=== PATIENT | male | born 1940 | race Hispanic/Latino ===

== ENCOUNTER 2017-02-11 12:04 | Emergency (ER) | payer MEDICARE, OTHER ==
[2017-02-11] MEDS ORDERED: fentaNYL CITRATE INJ 50 MCG/ML AMP IV ONE ×2 (12:10→13:04)
--- NOTE | 2017-02-11 12:10 | ED.PDOC ---
History of Present Illness - General Chief Complaint: Abdominal Pain Stated Complaint: abdominal pain Time Seen by Provider: 02/11/17 12:08 Source: EMS notes reviewed Exam Limitations: no limitations - History of Present Illness Initial Comments: Ze Reyes 76 y/o male brought by EMS with sudden onset of low back pain today radiating to his groin.EMS stated had just come home from [place]. Timing/Duration: 1-3 hours Severity: severe Improving Factors: nothing Worsening Factors: nothing Associated Symptoms: denies symptoms Allergies/Adverse Reactions: Allergies NO KNOWN ALLERGY Allergy (Verified 02/11/17 12:17) Review of Systems - Review of Systems Constitutional: States: no symptoms reported EENTM: States: no symptoms reported Respiratory: States: no symptoms reported Cardiology: States: no symptoms reported Gastrointestinal/Abdominal: States: see HPI Genitourinary: States: no symptoms reported Musculoskeletal: States: no symptoms reported Skin: States: no symptoms reported Neurological: States: no symptoms reported Past Medical History (General) - Patient Medical History Hx Seizures: No Hx Stroke: No Hx Cardiac Disorders: No Hx Congestive Heart Failure: No Hx Thyroid Disease: No Surgical History: other - low back surgery in [place] congenital defect lumbar spine - Social History Hx Physical Abuse: No Hx Emotional Abuse: No Hx Suspected Abuse: No - Activities of Daily Living Grooming Ability: Independent Eating (Feeding) Ability: Independent Toileting Ability: Independent Family Medical History - Family History Father Family History: No Known Physical Exam - Physical Exam General Appearance: Alert, Anxious, Other - in pain Eye Exam: bilateral normal Ears, Nose, Throat: hearing grossly normal, normal ENT inspection, normal pharynx Neck: full range of motion Respiratory: chest non-tender, lungs clear, normal breath sounds Cardiovascular/Chest: regular rate, rhythm, no murmur, tachycardia Gastrointestinal/Abdominal: soft, no organomegaly, tenderness - lower abdomen Rectal Exam: normal rectal tone Extremity: non-tender, no pedal edema Progress - Progress Progress: 02/11/17 13:19 Patient was hypotensive was given bolus and started on levophed.He was also restless so intubation was done given fentanyl and succinylcholine. 02/11/17 13:21 Abdominal ultrasound done showing abdominal aneurysm 9.4 cm 02/11/17 13:50 Laboratory Tests 02/11/17 02/11/17 02/11/17 12:13 12:45 12:45 WBC 15.0 H RBC 3.14 L Hgb 8.8 L Hct 27.5 L MCV 87.6 MCH 28.0 MCHC 31.8 L RDW 16.7 H Plt Count 197 MPV 8.3 Absolute Neuts (auto) 11.80 H Absolute Lymphs (auto) 2.20 Absolute Monos (auto) 0.80 Absolute Eos (auto) 0.10 Absolute Basos (auto) 0.10 Neutrophils % 78.5 H Lymphocytes % 15.0 L Monocytes % 5.3 Eosinophils % 0.8 L Basophils % 0.4 PT 14.5 H INR 1.290 PTT (SP) 36.0 Sodium 141 Potassium 3.9 Chloride 113 H Carbon Dioxide 21 Anion Gap 10.9 L BUN 24 H Creatinine 1.43 H BUN/Creatinine Ratio 16.8 Random Glucose 169 H Serum Osmolality 289.2 Calcium 8.3 L Total Bilirubin 0.6 AST 23 ALT 16 Alkaline Phosphatase 60 Troponin I Serum Total Protein 4.6 L Albumin 2.6 L Globulin 2.0 L Albumin/Globulin Ratio 1.3 Lipase 40 Patient ABO/Rh Antibody Screen Crossmatch 02/11/17 02/11/17 12:45 12:45 WBC RBC Hgb Hct MCV MCH MCHC RDW Plt Count MPV Absolute Neuts (auto) Absolute Lymphs (auto) Absolute Monos (auto) Absolute Eos (auto) Absolute Basos (auto) Neutrophils % Lymphocytes % Monocytes % Eosinophils % Basophils % PT INR PTT (SP) Sodium Potassium Chloride Carbon Dioxide Anion Gap BUN Creatinine BUN/Creatinine Ratio Random Glucose Serum Osmolality Calcium Total Bilirubin AST ALT Alkaline Phosphatase Troponin I < 0.02 Serum Total Protein Albumin Globulin Albumin/Globulin Ratio Lipase Patient ABO/Rh O POSITIVE Antibody Screen Negative Crossmatch See Detail - EKG/XRAY/CT EKG: Sinus, Tachy, no ST T wave changes Comments: heart rate-108 Departure - Departure Clinical Impression: Abdominal aortic aneurysm rupture Abdominal pain Qualifiers: Abdominal location: lower abdomen, unspecified Qualified Code(s): R10.30 - Lower abdominal pain, unspecified Time of Disposition: 13:51 Disposition: Transfer to Hospital Condition: Poor Departure Forms: Patient Portal Self Enrollment Referrals: Gallo Yu MD [Primary Care Provider] - 1-2 Weeks Transfer to Outside Facility - Transfer Information Accepting Facility: [facility] Reason for Transfer: required specialist not available
[2017-02-11] MEDS ORDERED: NOREPINEPHRINE BITARTRATE 4 MG/4 ML VIAL IVPB ONE (12:35)
[2017-02-11] MEDS ORDERED: DEXTROSE 5% 250ML 250 ML ONE (12:36)
--- NOTE | 2017-02-11 12:38 | RAD ---
EXAM DESCRIPTION: Chest,1 View CLINICAL HISTORY: pain COMPARISON: None available TECHNIQUE: AP portable chest FINDINGS: A poor respiratory effect is observed. The lungs are clear. The heart is within range of normal. IMPRESSION: Poor inspiratory effect otherwise unremarkable chest. Electronically signed by: Damon Trujillo MD 02/11/2017 12:37 PM CDT
[2017-02-11] MEDS ORDERED: SODIUM CHLORIDE 0.9% 1000ML 1,000 ML IVS ONE ×2 (12:40→13:20)
[2017-02-11] MEDS ORDERED: NOREPINEPHRINE BITARTRATE 4 MG in DEXTROSE 5% 250ML 250 ML IVPB SCH (13:00)
[2017-02-11] MEDS ORDERED: SUCCINYLCHOLINE CHLORIDE 200 MG/10 ML VIAL ONE (13:07)
--- NOTE | 2017-02-11 13:14 | US ---
EXAM DESCRIPTION: Aorta CLINICAL HISTORY: pain COMPARISON: None Available. TECHNIQUE: Complete abdominal ultrasound FINDINGS: There is a very large abdominal aortic aneurysm measuring 9.3 x 8.5 cm in size. Abundant mural thrombus observed. IMPRESSION: 1. Huge AAA is present. This pt requires emergent surgery consultation. I have spoken with the emergency room nurse. The emergency room physician is caring for this patient who is unstable. I strongly suspect that this aneurysm is leaking. Electronically signed by: David Stack MD 02/11/2017 1:12 PM CDT
[2017-02-11] MEDS ORDERED: SODIUM CHL 0.9% 100ML MINI-BAG 100 ML IVPB ONE (13:18)
[2017-02-11] MEDS ORDERED: SODIUM CHLORIDE 0.9% 100ML 100 ML IVPB ONE (13:19)
[2017-02-11] MEDS ORDERED: SODIUM CHLORIDE 0.9% 500ML 500 ML ONE (13:30)
[2017-02-11 17:06] VITALS: BP 133/84; TEMP 94.4; O2SAT 89
[2017-02-11] MEDS ORDERED: SUCCINYLCHOLINE CHLORIDE 200 MG/10 ML VIAL IV ONE (18:50)
--- NOTE | 2017-02-12 07:49 | RAD ---
EXAM DESCRIPTION: Chest,1 View CLINICAL HISTORY: Endotracheal tube placement FINDINGS/ IMPRESSION: Comparison 02/11/2017. Endotracheal tube is in contact with the right lateral wall of the trachea with bowing of the trachea. Tube approximately 4.2 cm above the hafsa. Heart size normal. Ectatic atherosclerotic aorta. Mild basilar atelectasis. No pulmonary edema, infiltrate or effusion Electronically signed by: Chinmay Garcia MD 02/12/2017 7:47 AM CDT
== END 2017-02-11 14:20 | disposition short-term general hospital (02) ==
LOC: ER 12:04
DX: I71.3 Abdominal aortic aneurysm, ruptured (principal)
CPT/HCPCS: 31500; 36415; 71010; 76775; 80053; 82270; 83690; 84484; 85025; 85610; 85730; 86850; 86900; 86901; 86922; 93005; 94002; 94770; J0330; J2060; J3010; J7040; J7050; J7060; P9016